=== PATIENT | male | born 1955 ===

== ENCOUNTER 2018-09-24 09:27 | Emergency (ER) | payer BC ==
--- NOTE | 2018-09-24 09:59 | UC ---
Respiratory Complaint HPI - HPI Summary HPI Summary: started feeling he was getting cold symps 4 days ago. last night coughing up green phlegm and had a fever (tactile), and had to use his albuterol to relieve cough. this am he cont to feel sick, coughing, no SOB or CP. his was treated 1 week ago for bronchitis and quickly recovered. he is flying to [place] tomorrow - History of Current Complaint Chief Complaint: UCGeneralIllness Stated Complaint: URI Time Seen by Provider: 09/24/18 09:48 Hx Obtained From: Patient, Family/[employer] Onset/Duration: Gradual Onset Timing: Constant Pain Intensity: 0 Character: Cough: Productive Aggravating Factors: Deep Breaths, Recumbent Position Alleviating Factors: Bronchodilator Associated Signs And Symptoms: Positive: Fever, URI, Nasal Congestion. Negative : Dyspnea, Chills, Pleuritic Chest Pain, Wheezing, Hemoptysis - Risk Factors Cardiac Risk Factors: Hypertension, Elevated Lipids - Allergies/Home Medications Allergies/Adverse Reactions: Allergies Allergy/AdvReac Type Severity Reaction Status Date / Time No Known Allergies Allergy Verified 09/24/18 09:33 Home Medications: Home Medications Fluticasone/Vilanterol MDI(NF) [Breo Ellipta MDI 100/25(NF)] 1 puff INH DAILY [History Confirmed 09/24/18] Metoprolol Succinate XL TAB* [Toprol XL TAB*] 50 mg PO DAILY 09/24/18 [History Confirmed 09/24/18] Ramipril CAP* [Altace CAP*] 10 mg PO DAILY 09/24/18 [History Confirmed 09/24/18] Simvastatin [Zocor] 40 mg PO DAILY 09/24/18 [History Confirmed 09/24/18] Tamsulosin CAP* [Flomax CAP*] 0.4 mg PO DAILY 09/24/18 [History Confirmed ] PMH/Surg Hx/FS Hx/Imm Hx Previously Healthy: Yes Endocrine History: Dyslipidemia Cardiovascular History: Hypertension GI/ History: Other - BPH - Surgical History Surgical History: Yes Surgery Procedure, Year, and Place: ankle, 2 hernias, knee - Family History Known Family History: Positive: Hypertension - Social History Occupation: Employed Full-time Lives: With Family Alcohol Use: Daily Alcohol Amount: 2-3 beers/ day Substance Use Type: None Smoking Status (MU): Never Smoked Tobacco Review of Systems All Other Systems Reviewed And Are Negative: Yes Constitutional: Positive: Fever. Negative: Chills Skin: Positive: Negative. Negative: Rash Eyes: Positive: Negative ENT: Positive: Sinus Congestion. Negative: Sore Throat, Ear Ache, Sinus Pain/ Tenderness Respiratory: Positive: Cough Cardiovascular: Positive: Negative Gastrointestinal: Positive: Negative Neurological: Positive: Negative. Negative: Headache Psychological: Positive: Negative Is Patient Immunocompromised?: No Physical Exam Triage Information Reviewed: Yes Appearance: Well-Appearing, No Pain Distress, Well-Nourished Vital Signs: Initial Vital Signs Temp 98.2 F 09/24/18 09:38 Pulse 62 09/24/18 09:38 Resp 16 09/24/18 09:38 BP 115/75 09/24/18 09:38 Pulse Ox 98 09/24/18 09:38 Vital Signs Reviewed: Yes Eye Exam: Normal Eyes: Positive: Conjunctiva Clear ENT: Positive: Nasal congestion, TMs normal, Other - PND. Negative: Sinus tenderness Neck: Positive: No Lymphadenopathy Respiratory Exam: Normal Respiratory: Positive: Lungs clear, Other: - no cough on exam Cardiovascular Exam: Normal Cardiovascular: Positive: RRR Neurological Exam: Normal Psychological Exam: Normal Skin Exam: Normal Respiratory Course/Dx - Differential Dx/Diagnosis Differential Diagnosis/HQI/PQRI: Asthma, Bronchitis, Lower Resp Infection, Sinusitis Provider Diagnosis: Bronchitis Discharge - Sign-Out/Discharge Documenting (check all that apply): Patient Departure All imaging exams completed and their final reports reviewed: No Studies - Discharge Plan Condition: Good Disposition: HOME Prescriptions: Azithromycin TAB* [Zithromax TAB (Z-VALERIE) 250 mg #6 tabs] 2 tab PO .TODAY, THEN 1 DAILY #1 valerie Patient Education Materials: Acute Bronchitis (ED) Referrals: No Primary Care Phys,NOPCP [Primary Care Provider] - Additional Instructions: start zithromax and take as directed use over the counter mucinex and sudafed as directed for symptom relief return if you experience shortness of breath or chest pain - Billing Disposition and Condition Condition: GOOD Disposition: Home
== END 2018-09-24 10:09 | disposition home or self-care (01) ==
LOC: UCEAST 09:27
DX: J40 Bronchitis, not specified as acute or chronic (principal); I10 Essential (primary) hypertension; E78.5 Hyperlipidemia, unspecified; N40.0 Benign prostatic hyperplasia without lower urinary tract symptoms
CPT/HCPCS: 99202; G0463